=== PATIENT | male | born 1960 | race Caucasian/White ===

== ENCOUNTER 2024-08-16 08:38 | Day surgery (SDC) | payer MEDICAID ==
[~2024-08-16] VITALS: Ht 165.1 cm; Wt 104.4 kg
[~2024-08-16 08:38] MED LIST: SODIUM CHLORIDE 0.9% 1,000 ML ONE
[2024-08-16] MEDS: SODIUM CHLORIDE 0.9% 1,000 ML IV ONE (09:00)
[2024-08-16] MEDS ORDERED: AMLO10TA55 PO (09:05)
[2024-08-16] MEDS ORDERED: ATOR20TA65 PO (09:05)
[2024-08-16] MEDS ORDERED: METF-1211 PO (09:05)
[2024-08-16] MEDS ORDERED: SEMA0.258 SQ (09:06)
[2024-08-16 09:51] LABS: GLUCOMETER DEV NAME(LOC) SDS.; GLUCOSE,POINT OF CARE 101 MG/DL (70-110)
[2024-08-16] MEDS ORDERED: PROPOFOL 1% 20 ML VIAL IVP ONE (18:00)
== END 2024-08-16 11:20 | disposition home or self-care (01) ==
LOC: SURGERY 08:38
PROVIDERS: ATTEND Internal Medicine Gastroenterology
DX: D50.9 Iron deficiency anemia, unspecified (principal); K31.7 Polyp of stomach and duodenum; E78.00 Pure hypercholesterolemia, unspecified; E11.9 Type 2 diabetes mellitus without complications; J45.909 Unspecified asthma, uncomplicated; Z98.890 Other specified postprocedural states; Z79.899 Other long term (current) drug therapy; E66.9 Obesity, unspecified; Z68.36 Body mass index [BMI] 36.0-36.9, adult
CPT/HCPCS: 43251; 82962; 88305; J2704; J7030